=== PATIENT | male | born 1985 | race Caucasian/White ===

== ENCOUNTER 2023-04-02 10:15 | Emergency (ER) | payer SELFPAY ==
[2023-04-02] MEDS ORDERED: Acetaminophen 325 MG Tab PO ONE (10:55)
[2023-04-02] MEDS ORDERED: Lidocaine/Epineph/Tetracaine 3 ML Syringe TOP ONE (10:55)
[2023-04-02] MEDS ORDERED: Ibuprofen 400 MG Tab PO ONE (10:55)
[2023-04-02] MEDS ORDERED: Lidocaine 1% 5 ML VIAL ONE (11:23)
[2023-04-02] MEDS ORDERED: Lidocaine 1% 5 ML VIAL INJECT ONE (11:23)
== END 2023-04-02 12:03 | disposition home or self-care (01) ==
LOC: MW.ED 10:15
DX: S01.81XA Laceration without foreign body of other part of head, initial encounter (principal); W22.8XXA Striking against or struck by other objects, initial encounter; Y92.89 Other specified places as the place of occurrence of the external cause; Y99.0 Civilian activity done for income or pay
CPT/HCPCS: 12013; 99282; A9270; 99283; J3490